=== PATIENT | male | born 1965 | race Caucasian/White ===

== ENCOUNTER 2016-05-08 06:35 | Day surgery (SDC) | payer OTHER ==
[~2016-05-08] VITALS: Ht 152.4 cm; Wt 70.3 kg
[~2016-05-08 06:35] MED LIST: ASPIR-LOW81 MG PO; AUGMENTIN875 MG PO; BENADRYL25 MG PO; CEFDINIR300 MG PO; CLINDAMYCIN HC150 MG PO; INDOCIN25 MG PO; LO-DOSE ASPIRIN81 M2 PO; MOBIC15 MG PO; NAPROSYN500 MG PO; NITROSTAT0.4 MG SL; NOHOMEMEDS; PREDNISONE10 MG PO; PROAIR HFA8.5 GM IH; RANITIDINE HCL150 MG PO; SPIRIVA RESPIMAT4 G1 IH; SYMBICORT60 INHALAT IH; VICODIN,LORT1 TABLET PO; ZANAFLEX2 M1 PO; ZANTAC150 MG PO
== END 2016-05-08 09:07 | disposition home or self-care (01) ==
LOC: PAIN 06:35 → SDC 07:30 → PAIN 09:07
PROC: 015B3ZZ Destruction of Lumbar Nerve, Percutaneous Approach (ICD-10-PCS; principal; 2016-05-08)
DX: M47.896 Other spondylosis, lumbar region (principal); M54.16 Radiculopathy, lumbar region; J43.9 Emphysema, unspecified
CPT/HCPCS: J1030; J2250; J3010; S0020

== ENCOUNTER 2016-05-15 07:06 | Day surgery (SDC) | payer OTHER ==
[~2016-05-15] VITALS: Ht 180.3 cm; Wt 70.2 kg
== END 2016-05-15 08:58 | disposition home or self-care (01) ==
LOC: PAIN 07:06 → SDC 08:00 → PAIN 08:00
DX: M47.896 Other spondylosis, lumbar region (principal); M54.16 Radiculopathy, lumbar region; F41.1 Generalized anxiety disorder; C43.9 Malignant melanoma of skin, unspecified; Z87.891 Personal history of nicotine dependence; J44.9 Chronic obstructive pulmonary disease, unspecified; Z79.51 Long term (current) use of inhaled steroids
CPT/HCPCS: J1030; J2250; J3010; S0020

== ENCOUNTER 2017-10-05 18:18 | Emergency (ER) | payer OTHER ==
[~2017-10-05] VITALS: Ht 182.9 cm; Wt 68.1 kg
[2017-10-05 19:51] VITALS: BP 144/102
== END 2017-10-05 19:52 | disposition home or self-care (01) ==
LOC: EME 18:18
PROC: 2W3RX1Z Immobilization of Left Lower Leg using Splint (ICD-10-PCS; principal; 2017-10-05)
DX: S93.402A Sprain of unspecified ligament of left ankle, initial encounter (principal); G89.29 Other chronic pain; M54.9 Dorsalgia, unspecified; X50.1XXA Overexertion from prolonged static or awkward postures, initial encounter
CPT/HCPCS: 73610; 99281; 99284